=== PATIENT | female | born 1960 | race Caucasian/White ===

== ENCOUNTER 2018-04-03 13:19 | Inpatient (IN) | payer MEDICAID ==
[~2018-04-03] VITALS: Ht 157.5 cm; Wt 51.7 kg
[2018-04-03 13:28] VITALS: BP_SYST 168
[2018-04-03] MEDS ORDERED: NACL 0.9% 1,000 ML IV ONE ×2 (13:33→18:30)
[2018-04-03] MEDS ORDERED: ASPIRIN 81 MG TAB.CHEW PO ONE (13:45)
[2018-04-03 14:14] LABS: BASOPHILS % (AUTO) 0.9 % (0.0-2.0); EOSINOPHILS % (AUTO) 0.3 % (0.0-4.0); HEMATOCRIT 41.9 % (36-48); HEMOGLOBIN 13.1 g/dL (12.0-16.0); LYMPHOCYTES # (AUTO) 1.1 K/uL (1.0-5.5); LYMPHOCYTES % (AUTO) 19.8 % (20.5-51.5); MEAN CORPUSCULAR HEMOGLOBIN 29 pg (27-31); MEAN CORPUSCULAR HGB CONC 31 % (32-36); MEAN CORPUSCULAR VOLUME 93 fL (79.0-98.0); MONOCYTES # (AUTO) 0.6 K/uL (0.0-1.0); MONOCYTES % (AUTO) 10.8 % (1.7-9.3); NEUTROPHILS # (AUTO) 3.8 K/uL (1.8-7.7); NEUTROPHILS % (AUTO) 68.2 % (40.0-70.0); PLATELET COUNT (AUTO) 394 K/uL (130-430); RED BLOOD CELL COUNT(AUTO) 4.51 MIL/uL (4.2-6.2); WHITE BLOOD COUNT (AUTO) 5.5 K/uL (4.8-10.8)
[2018-04-03] MEDS ORDERED: MORPHINE 2 MG/ML INJ. SYRINGE IVP ONE (14:15)
[2018-04-03 14:27] LABS: ANION GAP 10 (5-15); CALCIUM 9.1 mg/dL (8.4-11.0); CHLORIDE 99 mmol/L (98-107); CREATININE 0.65 mg/dL (0.55-1.30); GLUCOSE 117 mg/dL (70-99); POTASSIUM 4.7 mmol/L (3.5-5.1); SODIUM SERUM 136 mmol/L (136-145); UREA NITROGEN, BLOOD 9 mg/dL (8-21)
[2018-04-03 14:29] LABS: INR 1.1 (0.8-1.2); PROTHROMBIN TIME 10.8 SECS (9.5-12.5)
[2018-04-03 14:30] LABS: GFR AFRICAN AMERICAN 120 mL/min (>90)
[2018-04-03 14:43] LABS: ALANINE AMINOTRANSFERASE 14 U/L (12-78); ALBUMIN 2.7 g/dL (3.4-4.8); ASPARTATE AMINOTRANSFERASE 30 U/L (10-37); TOTAL BILIRUBIN 0.4 mg/dL (0.0-1.0)
[2018-04-03] MEDS ORDERED: LIDOCAINE 1% 10 MG/ML, 20 ML MDV INJ ONE (14:45)
[2018-04-03] MEDS ORDERED: PIPERACILLIN/TAZO 3.375 GM in NS 50 ML IV ONE (14:45)
[2018-04-03] MEDS ORDERED: fentaNYL CITRATE/PF 100 MCG/2 ML AMP IVP ONE ×2 (14:45→18:45)
[2018-04-03] MEDS ORDERED: ENOXAPARIN SODIUM 60 MG/0.6 ML SYRINGE SUBCUT ONE (14:45)
[2018-04-03] MEDS ORDERED: CLINDAMYCIN 900 mg/50mL D5W 50 ML IV ONE (14:45)
[2018-04-03] MEDS ORDERED: IOHEXOL 350 mgI/mL, 150 ML INFUS..BTL IV ONE (14:46)
[2018-04-03] MEDS ORDERED: PIPERACILLIN/TAZOBACTAM 3.375 GM/VIAL (ZOSYN) IV ONE (15:10)
[2018-04-03] MEDS ORDERED: LIDOCAINE 1%, 20 ML MDV 20 ML ONE (15:41)
[2018-04-03 17:10] VITALS: BP_SYST 128
[2018-04-03] MEDS ORDERED: ONDANSETRON HCL 4 MG/2 ML VIAL IVP PRN ×2 (17:15→20:45)
[2018-04-03 18:18] LABS: BASOPHILS # (AUTO) 0.1 K/uL (0.0-0.2); EOSINOPHILS % (AUTO) 0.1 % (0.0-4.0); HEMATOCRIT 40.9 % (36-48); HEMOGLOBIN 12.9 g/dL (12.0-16.0); LYMPHOCYTES % (AUTO) 13.4 % (20.5-51.5); MEAN CORPUSCULAR HEMOGLOBIN 29 pg (27-31); MEAN CORPUSCULAR HGB CONC 32 % (32-36); MEAN CORPUSCULAR VOLUME 92 fL (79.0-98.0); MONOCYTES # (AUTO) 0.5 K/uL (0.0-1.0); MONOCYTES % (AUTO) 6.8 % (1.7-9.3); NEUTROPHILS % (AUTO) 78.7 % (40.0-70.0); PLATELET COUNT (AUTO) 398 K/uL (130-430); RED BLOOD CELL COUNT(AUTO) 4.45 MIL/uL (4.2-6.2); WHITE BLOOD COUNT (AUTO) 7.6 K/uL (4.8-10.8)
[2018-04-03] MEDS ORDERED: CEFAZOLIN 2 GM IVPB PREMIX 50 ML IV ONE (18:45)
[2018-04-03] MEDS ORDERED: PROPOFOL 200MG/ 20ML VIAL (DIPRIVAN) IV ONE (18:45)
[2018-04-03] MEDS ORDERED: NEOSTIGMINE METHYLSULFATE 1 MG/ML, 10 ML VIAL IVP ONE (18:45)
[2018-04-03] MEDS ORDERED: MIDAZOLAM HCL 5 MG/5 ML VIAL IVP ONE (18:45)
[2018-04-03] MEDS ORDERED: ROCURONIUM BROMIDE 10 MG/ML (ZEMURON) IV ONE (18:45)
[2018-04-03] MEDS ORDERED: LR 1,000 ML IV.SOLN IV ONE (18:45)
[2018-04-03] MEDS ORDERED: GLYCOPYRROLATE 0.2 MG/ML VIAL IJ ONE (18:45)
[2018-04-03] MEDS ORDERED: SEVOFLURANE 15 MIN GAS INH ONE (18:45)
[2018-04-03 18:47] LABS: INR 1.1 (0.8-1.2); PROTHROMBIN TIME 11.6 SECS (9.5-12.5)
[2018-04-03] MEDS ORDERED: IPRATROPIUM BROM 0.5 MG/2.5 ML VIAL.NEB (ATROVENT) INH SCH (19:00)
[2018-04-03] MEDS ORDERED: ALBUTEROL SULFATE 0.083% 2.5 MG/3 ML VIAL.NEB INH SCH (19:00)
[2018-04-03 20:45] VITALS: BP_SYST 140
[2018-04-03] MEDS ORDERED: fentaNYL CITRATE/PF 100 MCG/2 ML AMP IVP PRN ×2 (20:45)
[2018-04-03] MEDS ORDERED: fentaNYL CITRATE/PF 100 MCG/2 ML AMP ONE (20:52)
[2018-04-03 21:00] VITALS: BP_SYST 116
[2018-04-03 21:11] LABS: BASOPHILS # (AUTO) 0.1 K/uL (0.0-0.2); BASOPHILS % (AUTO) 0.9 % (0.0-2.0); HEMATOCRIT 40.8 % (36-48); HEMOGLOBIN 13.1 g/dL (12.0-16.0); LYMPHOCYTES # (AUTO) 0.9 K/uL (1.0-5.5); LYMPHOCYTES % (AUTO) 7.9 % (20.5-51.5); MEAN CORPUSCULAR HEMOGLOBIN 29 pg (27-31); MEAN CORPUSCULAR HGB CONC 32 % (32-36); MEAN CORPUSCULAR VOLUME 91 fL (79.0-98.0); MONOCYTES # (AUTO) 0.7 K/uL (0.0-1.0); MONOCYTES % (AUTO) 6.2 % (1.7-9.3); NEUTROPHILS # (AUTO) 9.5 K/uL (1.8-7.7); PLATELET COUNT (AUTO) 310 K/uL (130-430); RED BLOOD CELL COUNT(AUTO) 4.46 MIL/uL (4.2-6.2); RED CELL DISTRIBUTION WIDTH 13.2 % (9.0-15.0); WHITE BLOOD COUNT (AUTO) 11.2 K/uL (4.8-10.8)
[2018-04-03] MEDS: NACL 0.9% 1,000 ML IV SCH (21:13)
[2018-04-03] MEDS: MORPHINE 4 MG/ML INJ. SYRINGE IVP PRN (21:43)
[2018-04-03 22:00] VITALS: BP_SYST 114
[2018-04-03] MEDS: MORPHINE 2 MG/ML INJ. SYRINGE IVP PRN (22:50)
[2018-04-03 23:00] VITALS: BP_SYST 110
[2018-04-04] VITALS (24 sets, daily range): BP systolic 107–156
[2018-04-04] MEDS ORDERED: KETOROLAC TROMETHAMINE 30 MG VIAL IVP ONE (01:00)
[2018-04-04] MEDS ORDERED: KETOROLAC TROMETHAMINE 30 MG VIAL ONE (01:16)
[2018-04-04] MEDS: MORPHINE 4 MG/ML INJ. SYRINGE IVP PRN ×3 (02:25→13:54)
[2018-04-04] MEDS: NACL 0.9% 1,000 ML IV SCH (05:07)
[2018-04-04 06:21] LABS: CALCIUM 8.2 mg/dL (8.4-11.0); CREATININE 0.63 mg/dL (0.55-1.30)
[2018-04-04 06:24] LABS: INR 1.1 (0.8-1.2); PROTHROMBIN TIME 11.4 SECS (9.5-12.5)
[2018-04-04] MEDS: MORPHINE 2 MG/ML INJ. SYRINGE IVP PRN (06:26)
[2018-04-04 06:34] LABS: ALBUMIN 1.9 g/dL (3.4-4.8); TOTAL BILIRUBIN 0.4 mg/dL (0.0-1.0)
[2018-04-04 06:57] LABS: BASOPHILS % (AUTO) 0.1 % (0.0-2.0); EOSINOPHILS % (AUTO) 0.1 % (0.0-4.0); HEMATOCRIT 33.2 % (36-48); HEMOGLOBIN 11.4 g/dL (12.0-16.0); LYMPHOCYTES % (AUTO) 13.6 % (20.5-51.5); MEAN CORPUSCULAR HEMOGLOBIN 31 pg (27-31); MEAN CORPUSCULAR HGB CONC 34 % (32-36); MEAN CORPUSCULAR VOLUME 91 fL (79.0-98.0); MONOCYTES # (AUTO) 0.7 K/uL (0.0-1.0); MONOCYTES % (AUTO) 8.5 % (1.7-9.3); NEUTROPHILS % (AUTO) 77.7 % (40.0-70.0); PLATELET COUNT (AUTO) 294 K/uL (130-430); RED BLOOD CELL COUNT(AUTO) 3.64 MIL/uL (4.2-6.2); RED CELL DISTRIBUTION WIDTH 13.2 % (9.0-15.0); WHITE BLOOD COUNT (AUTO) 7.7 K/uL (4.8-10.8)
[2018-04-04] MEDS ORDERED: MORPHINE 4 MG/ML INJ. SYRINGE IVP PRN (07:45)
[2018-04-04] MEDS ORDERED: MORPHINE 4 MG/ML INJ. SYRINGE IVP ONE (07:45)
[2018-04-04] MEDS ORDERED: MORPHINE 4 MG/ML INJ. SYRINGE ONE (07:58)
[2018-04-04] MEDS: MORPHINE SULFATE 15 MG TABLET.ER PO SCH ×2 (09:02→21:09)
[2018-04-04] MEDS: 0.45% NACL 1,000 ML IV SCH (10:47)
[2018-04-04] MEDS: AMPICILLIN SODIUM/SULBACTAM NA 1.5 GM in NS 50 ML IV SCH ×3 (12:53→23:37)
[2018-04-04] MEDS ORDERED: HYDROmorphone 1 MG INJ. 1 MG/ML AMPUL IVP PRN (14:45)
[2018-04-04] MEDS ORDERED: HYDROmorphone 2 MG/ML VIAL IVP PRN (14:45)
[2018-04-04] MEDS: HYDROmorphone 2 MG/ML VIAL IVP PRN ×3 (15:39→23:03)
[2018-04-04] MEDS: ALBUTEROL SULFATE 0.083% 2.5 MG/3 ML VIAL.NEB INH PRN (19:09)
[2018-04-04] MEDS: IPRATROPIUM BROM 0.5 MG/2.5 ML VIAL.NEB (ATROVENT) INH PRN (19:09)
[2018-04-04] MEDS ORDERED: ADENOSINE 6MG/2ML VIAL ONE (23:28)
[2018-04-04] MEDS ORDERED: METOPROLOL TARTRATE 25 MG TABLET PO ONE (23:30)
[2018-04-04] MEDS ORDERED: ADENOSINE 6MG/2ML VIAL IVP ONE (23:30)
[2018-04-04] MEDS ORDERED: METOPROLOL TARTRATE 25 MG TABLET ONE (23:41)
[2018-04-05] VITALS (24 sets, daily range): BP systolic 98–151
[2018-04-05] MEDS: 0.45% NACL 1,000 ML IV SCH ×2 (00:27→14:58)
[2018-04-05] MEDS: HYDROmorphone 2 MG/ML VIAL IVP PRN ×7 (01:12→22:11)
[2018-04-05] MEDS: AMPICILLIN SODIUM/SULBACTAM NA 1.5 GM in NS 50 ML IV SCH ×4 (06:13→23:42)
[2018-04-05 06:30] LABS: BASOPHILS # (AUTO) 0.1 K/uL (0.0-0.2); BASOPHILS % (AUTO) 0.8 % (0.0-2.0); EOSINOPHILS # (AUTO) 0.1 K/uL (0.0-0.4); EOSINOPHILS % (AUTO) 0.7 % (0.0-4.0); HEMATOCRIT 34.2 % (36-48); HEMOGLOBIN 11.4 g/dL (12.0-16.0); LYMPHOCYTES # (AUTO) 1.4 K/uL (1.0-5.5); LYMPHOCYTES % (AUTO) 16.9 % (20.5-51.5); MEAN CORPUSCULAR HEMOGLOBIN 31 pg (27-31); MEAN CORPUSCULAR HGB CONC 33 % (32-36); MEAN CORPUSCULAR VOLUME 92 fL (79.0-98.0); MONOCYTES # (AUTO) 1.1 K/uL (0.0-1.0); MONOCYTES % (AUTO) 13.1 % (1.7-9.3); NEUTROPHILS # (AUTO) 5.4 K/uL (1.8-7.7); NEUTROPHILS % (AUTO) 68.5 % (40.0-70.0); PLATELET COUNT (AUTO) 332 K/uL (130-430); RED BLOOD CELL COUNT(AUTO) 3.73 MIL/uL (4.2-6.2); RED CELL DISTRIBUTION WIDTH 13.4 % (9.0-15.0); WHITE BLOOD COUNT (AUTO) 8.1 K/uL (4.8-10.8)
[2018-04-05 06:50] LABS: CALCIUM 8.7 mg/dL (8.4-11.0); CREATININE 0.58 mg/dL (0.55-1.30); POTASSIUM 3.7 mmol/L (3.5-5.1)
[2018-04-05] MEDS: METOPROLOL TARTRATE 25 MG TABLET PO SCH ×2 (08:40→20:36)
[2018-04-05] MEDS: MORPHINE SULFATE 30 MG TABLET.SA PO SCH ×2 (08:41→20:35)
[2018-04-05] MEDS: ENOXAPARIN SODIUM 40 MG/0.4 ML SYRINGE SUBCUT SCH (08:43)
[2018-04-05] MEDS: HYDROmorphone 1 MG INJ. 1 MG/ML AMPUL IVP PRN ×2 (14:03→17:17)
[2018-04-05 23:58] LABS: BILIRUBIN,URINE NEGATIVE (NEGATIVE); CLARITY/URINE CLEAR (CLEAR); COLOR,URINE YELLOW (YELLOW); GLUCOSE,URINE NEGATIVE (NEGATIVE); KETONES,URINE 1+ (NEGATIVE); LEUKOCYTE ESTERASE ,URINE NEGATIVE (NEGATIVE); NITRITE, URINE NEGATIVE (NEGATIVE); PROTEIN URINE NEGATIVE (NEGATIVE); UROBILINOGEN,URINE 0.2 (0.2-1.0)
[2018-04-05 23:59] LABS: BLOOD, URINE TRACE (NEGATIVE)
[2018-04-06] VITALS (20 sets, daily range): BP systolic 89–129
[2018-04-06] MEDS: HYDROmorphone 2 MG/ML VIAL IVP PRN ×9 (00:24→22:07)
[2018-04-06 04:01] LABS: BACTERIA,URINE FEW /HPF (None Seen); WBC,URINE 0-3 /HPF (0-3)
[2018-04-06] MEDS: 0.45% NACL 1,000 ML IV SCH (04:34)
[2018-04-06] MEDS: AMPICILLIN SODIUM/SULBACTAM NA 1.5 GM in NS 50 ML IV SCH ×3 (05:30→17:02)
[2018-04-06 07:24] LABS: BASOPHILS # (AUTO) 0.1 K/uL (0.0-0.2); BASOPHILS % (AUTO) 1.2 % (0.0-2.0); EOSINOPHILS # (AUTO) 0.1 K/uL (0.0-0.4); EOSINOPHILS % (AUTO) 1.6 % (0.0-4.0); HEMATOCRIT 32.5 % (36-48); LYMPHOCYTES # (AUTO) 1.5 K/uL (1.0-5.5); LYMPHOCYTES % (AUTO) 16.3 % (20.5-51.5); MEAN CORPUSCULAR HEMOGLOBIN 31 pg (27-31); MEAN CORPUSCULAR HGB CONC 34 % (32-36); MEAN CORPUSCULAR VOLUME 91 fL (79.0-98.0); MONOCYTES % (AUTO) 10.8 % (1.7-9.3); NEUTROPHILS # (AUTO) 6.3 K/uL (1.8-7.7); NEUTROPHILS % (AUTO) 70.1 % (40.0-70.0); PLATELET COUNT (AUTO) 322 K/uL (130-430); RED BLOOD CELL COUNT(AUTO) 3.59 MIL/uL (4.2-6.2); RED CELL DISTRIBUTION WIDTH 13.1 % (9.0-15.0)
[2018-04-06] MEDS: MORPHINE SULFATE 30 MG TABLET.SA PO SCH ×2 (08:05→20:45)
[2018-04-06] MEDS: METOPROLOL TARTRATE 25 MG TABLET PO SCH ×2 (08:06→20:45)
[2018-04-06] MEDS: ENOXAPARIN SODIUM 40 MG/0.4 ML SYRINGE SUBCUT SCH (08:08)
[2018-04-06] MEDS ORDERED: MILK OF MAGNESIA 30 ML UDC PO ONE (09:30)
[2018-04-06] MEDS: IPRATROPIUM BROM 0.5 MG/2.5 ML VIAL.NEB (ATROVENT) INH PRN (20:45)
[2018-04-06] MEDS: ALBUTEROL SULFATE 0.083% 2.5 MG/3 ML VIAL.NEB INH PRN (20:45)
[2018-04-07] MEDS: HYDROmorphone 2 MG/ML VIAL IVP PRN ×10 (00:26→23:37)
[2018-04-07] MEDS: AMPICILLIN SODIUM/SULBACTAM NA 1.5 GM in NS 50 ML IV SCH ×5 (00:27→23:36)
[2018-04-07 00:59] VITALS: BP_SYST 135
[2018-04-07] MEDS: ALBUTEROL SULFATE 0.083% 2.5 MG/3 ML VIAL.NEB INH PRN (04:47)
[2018-04-07] MEDS: IPRATROPIUM BROM 0.5 MG/2.5 ML VIAL.NEB (ATROVENT) INH PRN (04:47)
[2018-04-07 06:15] LABS: BASOPHILS # (AUTO) 0.1 K/uL (0.0-0.2); HEMATOCRIT 36.8 % (36-48); MONOCYTES # (AUTO) 1.2 K/uL (0.0-1.0)
[2018-04-07 07:21] LABS: BASOPHILS % (AUTO) 0.5 % (0.0-2.0); EOSINOPHILS # (AUTO) 0.1 K/uL (0.0-0.4); EOSINOPHILS % (AUTO) 0.4 % (0.0-4.0); HEMOGLOBIN 11.9 g/dL (12.0-16.0); LYMPHOCYTES # (AUTO) 1.2 K/uL (1.0-5.5); LYMPHOCYTES % (AUTO) 9.4 % (20.5-51.5); MEAN CORPUSCULAR HEMOGLOBIN 30 pg (27-31); MEAN CORPUSCULAR HGB CONC 32 % (32-36); MEAN CORPUSCULAR VOLUME 92 fL (79.0-98.0); MONOCYTES % (AUTO) 9.2 % (1.7-9.3); NEUTROPHILS # (AUTO) 10.1 K/uL (1.8-7.7); NEUTROPHILS % (AUTO) 80.5 % (40.0-70.0); PLATELET COUNT (AUTO) 466 K/uL (130-430); RED BLOOD CELL COUNT(AUTO) 4.01 MIL/uL (4.2-6.2); RED CELL DISTRIBUTION WIDTH 12.8 % (9.0-15.0); WHITE BLOOD COUNT (AUTO) 12.8 K/uL (4.8-10.8)
[2018-04-07 08:00] VITALS: BP_SYST 110
[2018-04-07] MEDS: MORPHINE SULFATE 30 MG TABLET.SA PO SCH (08:43)
[2018-04-07] MEDS: METOPROLOL TARTRATE 25 MG TABLET PO SCH ×2 (08:44→21:49)
[2018-04-07] MEDS: ENOXAPARIN SODIUM 40 MG/0.4 ML SYRINGE SUBCUT SCH (08:45)
[2018-04-07 12:13] VITALS: BP_SYST 109
[2018-04-07 16:31] VITALS: BP_SYST 126
[2018-04-07 20:07] VITALS: BP_SYST 145
[2018-04-07] MEDS: MORPHINE SULFATE 15 MG TABLET.ER PO SCH (21:48)
[2018-04-08 00:02] VITALS: BP_SYST 100
[2018-04-08 04:38] VITALS: BP_SYST 142
[2018-04-08] MEDS: HYDROmorphone 2 MG/ML VIAL IVP PRN ×9 (04:44→22:08)
[2018-04-08] MEDS: AMPICILLIN SODIUM/SULBACTAM NA 1.5 GM in NS 50 ML IV SCH ×4 (05:44→23:44)
[2018-04-08 08:00] VITALS: BP_SYST 151
[2018-04-08] MEDS: MORPHINE SULFATE 15 MG TABLET.ER PO SCH ×2 (08:48→20:04)
[2018-04-08] MEDS: METOPROLOL TARTRATE 25 MG TABLET PO SCH ×2 (08:49→20:04)
[2018-04-08] MEDS: ENOXAPARIN SODIUM 40 MG/0.4 ML SYRINGE SUBCUT SCH (08:50)
[2018-04-08] MEDS: MILK OF MAGNESIA 30 ML UDC PO PRN (09:21)
[2018-04-08 12:44] VITALS: BP_SYST 106
[2018-04-08 16:46] VITALS: BP_SYST 122
[2018-04-08 20:00] VITALS: BP_SYST 132
[2018-04-08] MEDS ORDERED: HYDROmorphone 2 MG/ML VIAL IVP PRN (20:30)
[2018-04-08] MEDS: MORPHINE SULFATE 30 MG TABLET.SA PO SCH (21:00)
[2018-04-08] MEDS: GABAPENTIN 100 MG CAPSULE PO SCH (21:28)
[2018-04-08] MEDS: NAPROXEN 250 MG TABLET PO SCH (21:29)
[2018-04-08] MEDS ORDERED: MORPHINE SULFATE 15 MG TABLET.ER PO ONE (22:00)
[2018-04-09] VITALS (7 sets, daily range): BP systolic 104–126
[2018-04-09] MEDS: HYDROmorphone 2 MG/ML VIAL IVP PRN ×7 (00:12→22:09)
[2018-04-09] MEDS: AMPICILLIN SODIUM/SULBACTAM NA 1.5 GM in NS 50 ML IV SCH ×4 (05:05→23:25)
[2018-04-09 06:27] LABS: BASOPHILS # (AUTO) 0.1 K/uL (0.0-0.2); BASOPHILS % (AUTO) 1.2 % (0.0-2.0); EOSINOPHILS # (AUTO) 0.1 K/uL (0.0-0.4); EOSINOPHILS % (AUTO) 0.9 % (0.0-4.0); HEMATOCRIT 30.9 % (36-48); HEMOGLOBIN 10.4 g/dL (12.0-16.0); LYMPHOCYTES # (AUTO) 1.3 K/uL (1.0-5.5); LYMPHOCYTES % (AUTO) 15.3 % (20.5-51.5); MEAN CORPUSCULAR HEMOGLOBIN 31 pg (27-31); MEAN CORPUSCULAR HGB CONC 34 % (32-36); MEAN CORPUSCULAR VOLUME 91 fL (79.0-98.0); MONOCYTES # (AUTO) 0.8 K/uL (0.0-1.0); MONOCYTES % (AUTO) 10.2 % (1.7-9.3); NEUTROPHILS % (AUTO) 72.4 % (40.0-70.0); PLATELET COUNT (AUTO) 410 K/uL (130-430); RED BLOOD CELL COUNT(AUTO) 3.38 MIL/uL (4.2-6.2); RED CELL DISTRIBUTION WIDTH 12.9 % (9.0-15.0); WHITE BLOOD COUNT (AUTO) 8.3 K/uL (4.8-10.8)
[2018-04-09 06:55] LABS: ALBUMIN 1.8 g/dL (3.4-4.8); CALCIUM 9.8 mg/dL (8.4-11.0); CREATININE 0.56 mg/dL (0.55-1.30); POTASSIUM 4.1 mmol/L (3.5-5.1); TOTAL BILIRUBIN 0.3 mg/dL (0.0-1.0)
[2018-04-09] MEDS: MORPHINE SULFATE 30 MG TABLET.SA PO SCH ×2 (09:30→20:37)
[2018-04-09] MEDS: NAPROXEN 250 MG TABLET PO SCH ×2 (09:30→20:37)
[2018-04-09] MEDS: GABAPENTIN 100 MG CAPSULE PO SCH ×3 (09:30→20:36)
[2018-04-09] MEDS: METOPROLOL TARTRATE 25 MG TABLET PO SCH ×2 (09:31→20:37)
[2018-04-09] MEDS: ENOXAPARIN SODIUM 40 MG/0.4 ML SYRINGE SUBCUT SCH (09:32)
[2018-04-10 00:10] VITALS: BP_SYST 100
[2018-04-10] MEDS: HYDROmorphone 2 MG/ML VIAL IVP PRN ×6 (02:37→22:37)
[2018-04-10] MEDS: AMPICILLIN SODIUM/SULBACTAM NA 1.5 GM in NS 50 ML IV SCH ×4 (05:06→23:20)
[2018-04-10 08:00] VITALS: BP_SYST 106
[2018-04-10] MEDS: NAPROXEN 250 MG TABLET PO SCH ×2 (08:23→20:16)
[2018-04-10] MEDS: ENOXAPARIN SODIUM 40 MG/0.4 ML SYRINGE SUBCUT SCH (08:24)
[2018-04-10] MEDS: MORPHINE SULFATE 30 MG TABLET.SA PO SCH ×2 (08:25→20:17)
[2018-04-10] MEDS: METOPROLOL TARTRATE 25 MG TABLET PO SCH ×2 (08:25→20:17)
[2018-04-10] MEDS: METHADONE HCL 10 MG TABLET PO SCH ×2 (09:41→20:18)
[2018-04-10] MEDS ORDERED: HYDROmorphone 2 MG/ML VIAL IVP PRN (10:00)
[2018-04-10] MEDS ORDERED: HYDROmorphone 1 MG INJ. 1 MG/ML AMPUL IVP PRN (10:15)
[2018-04-10] MEDS ORDERED: MORPHINE 4 MG/ML INJ. SYRINGE ONE (11:14)
[2018-04-10] MEDS ORDERED: MORPHINE 2 MG/ML INJ. SYRINGE IVP ONE (11:15)
[2018-04-10 12:00] VITALS: BP_SYST 99
[2018-04-10 16:00] VITALS: BP_SYST 100
[2018-04-10 20:00] VITALS: BP_SYST 133
[2018-04-11 00:13] VITALS: BP_SYST 104
[2018-04-11] MEDS: HYDROmorphone 2 MG/ML VIAL IVP PRN ×4 (05:34→18:07)
[2018-04-11] MEDS: AMPICILLIN SODIUM/SULBACTAM NA 1.5 GM in NS 50 ML IV SCH ×4 (07:43→12:00)
[2018-04-11 08:00] VITALS: BP_SYST 117
[2018-04-11] MEDS: NAPROXEN 250 MG TABLET PO SCH ×2 (10:32→20:26)
[2018-04-11] MEDS: METHADONE HCL 10 MG TABLET PO SCH ×2 (10:32→20:25)
[2018-04-11] MEDS: METOPROLOL TARTRATE 25 MG TABLET PO SCH ×2 (10:33→20:26)
[2018-04-11] MEDS: MORPHINE SULFATE 30 MG TABLET.SA PO SCH (10:33)
[2018-04-11] MEDS: ENOXAPARIN SODIUM 40 MG/0.4 ML SYRINGE SUBCUT SCH (10:48)
[2018-04-11 12:00] VITALS: BP_SYST 119
[2018-04-11 16:04] VITALS: BP_SYST 110
[2018-04-11 19:45] VITALS: BP_SYST 125
[2018-04-11] MEDS: MORPHINE SULFATE 15 MG TABLET.ER PO SCH (20:25)
[2018-04-12] MEDS: HYDROmorphone 2 MG/ML VIAL IVP PRN ×4 (00:01→10:46)
[2018-04-12 00:34] VITALS: BP_SYST 116
[2018-04-12] MEDS ORDERED: ADENOSINE 6MG/2ML VIAL IVP ONE (05:00)
[2018-04-12] MEDS ORDERED: ADENOSINE 6MG/2ML VIAL ONE (05:03)
[2018-04-12 08:03] VITALS: BP_SYST 121
[2018-04-12] MEDS: METHADONE HCL 10 MG TABLET PO SCH ×2 (08:57→22:05)
[2018-04-12] MEDS: MORPHINE SULFATE 15 MG TABLET.ER PO SCH ×2 (08:57→22:05)
[2018-04-12] MEDS: METOPROLOL TARTRATE 25 MG TABLET PO SCH ×2 (08:58→22:06)
[2018-04-12] MEDS: NAPROXEN 250 MG TABLET PO SCH ×2 (08:58→22:05)
[2018-04-12] MEDS: ENOXAPARIN SODIUM 40 MG/0.4 ML SYRINGE SUBCUT SCH (09:00)
[2018-04-12 09:18] VITALS: BP_SYST 121
[2018-04-12 12:47] VITALS: BP_SYST 118
[2018-04-12 15:43] VITALS: BP_SYST 108
[2018-04-12 20:00] VITALS: BP_SYST 140
[2018-04-13 00:32] VITALS: BP_SYST 116
[2018-04-13 08:15] VITALS: BP_SYST 141
[2018-04-13] MEDS: METOPROLOL TARTRATE 25 MG TABLET PO SCH ×2 (09:09→20:59)
[2018-04-13] MEDS: MORPHINE SULFATE 15 MG TABLET.ER PO SCH ×2 (09:10→20:58)
[2018-04-13] MEDS: NAPROXEN 250 MG TABLET PO SCH ×2 (09:10→21:00)
[2018-04-13] MEDS: METHADONE HCL 10 MG TABLET PO SCH ×2 (09:10→21:00)
[2018-04-13] MEDS: ENOXAPARIN SODIUM 40 MG/0.4 ML SYRINGE SUBCUT SCH (09:12)
[2018-04-13 12:00] VITALS: BP_SYST 144
[2018-04-13 16:00] VITALS: BP_SYST 139
[2018-04-13] MEDS ORDERED: ANASTROZOLE 1 MG TABLET (ARIMIDEX) PO SCH (18:45)
[2018-04-13 20:00] VITALS: BP_SYST 128
[2018-04-14 00:18] VITALS: BP_SYST 121
[2018-04-14 08:00] VITALS: BP_SYST 121
[2018-04-14 08:05] LABS: ALBUMIN 2.1 g/dL (3.4-4.8); CALCIUM 11.3 mg/dL (8.4-11.0); CREATININE 0.89 mg/dL (0.55-1.30); POTASSIUM 4.8 mmol/L (3.5-5.1); TOTAL BILIRUBIN 0.5 mg/dL (0.0-1.0)
[2018-04-14 08:07] LABS: HEMATOCRIT 34.5 % (36-48); HEMOGLOBIN 11.4 g/dL (12.0-16.0); MEAN CORPUSCULAR HEMOGLOBIN 30 pg (27-31); MEAN CORPUSCULAR HGB CONC 33 % (32-36); MEAN CORPUSCULAR VOLUME 90 fL (79.0-98.0); PLATELET COUNT (AUTO) 559 K/uL (130-430); RED BLOOD CELL COUNT(AUTO) 3.83 MIL/uL (4.2-6.2); RED CELL DISTRIBUTION WIDTH 13.7 % (9.0-15.0); WHITE BLOOD COUNT (AUTO) 11.9 K/uL (4.8-10.8)
[2018-04-14 09:13] LABS: ATYPICAL LYMPHOCYTES % 2 % (0-0); BASOPHILS % (MANUAL) 0 % (0-2); EOSINOPHILS % (MANUAL) 0 % (0-7); LYMPHOCYTES % (MANUAL) 13 % (20-46); MONOCYTES % (MANUAL) 7 % (0-11)
[2018-04-14] MEDS: MORPHINE SULFATE 15 MG TABLET.ER PO SCH ×2 (09:26→21:38)
[2018-04-14] MEDS: NAPROXEN 250 MG TABLET PO SCH ×2 (09:26→21:40)
[2018-04-14] MEDS: METHADONE HCL 10 MG TABLET PO SCH ×2 (09:28→21:37)
[2018-04-14] MEDS: METOPROLOL TARTRATE 25 MG TABLET PO SCH ×2 (09:29→21:36)
[2018-04-14] MEDS: ENOXAPARIN SODIUM 40 MG/0.4 ML SYRINGE SUBCUT SCH (09:31)
[2018-04-14 11:42] VITALS: BP_SYST 128
[2018-04-14] MEDS: ACETAMINOPHEN 325 MG TABLET PO PRN (16:32)
[2018-04-14 16:48] VITALS: BP_SYST 130
[2018-04-14] MEDS: ANASTROZOLE 1 MG TABLET (ARIMIDEX) PO SCH (18:09)
[2018-04-14 19:00] VITALS: BP_SYST 134
[2018-04-14 20:00] VITALS: BP_SYST 134
[2018-04-15] VITALS (7 sets, daily range): BP systolic 96–129
[2018-04-15] MEDS: METOPROLOL TARTRATE 25 MG TABLET PO SCH ×2 (09:00→20:08)
[2018-04-15] MEDS: MORPHINE SULFATE 15 MG TABLET.ER PO SCH ×2 (09:01→20:09)
[2018-04-15] MEDS: METHADONE HCL 10 MG TABLET PO SCH ×2 (09:01→21:30)
[2018-04-15] MEDS: NAPROXEN 250 MG TABLET PO SCH ×2 (09:02→22:34)
[2018-04-15] MEDS: ACETAMINOPHEN 325 MG TABLET PO PRN (09:02)
[2018-04-15] MEDS: ENOXAPARIN SODIUM 40 MG/0.4 ML SYRINGE SUBCUT SCH (09:11)
[2018-04-15] MEDS: ANASTROZOLE 1 MG TABLET (ARIMIDEX) PO SCH (17:43)
[2018-04-16 07:10] LABS: BASOPHILS % (AUTO) 0.2 % (0.0-2.0); EOSINOPHILS # (AUTO) 0.1 K/uL (0.0-0.4); EOSINOPHILS % (AUTO) 1.2 % (0.0-4.0); HEMATOCRIT 37.1 % (36-48); HEMOGLOBIN 12.1 g/dL (12.0-16.0); LYMPHOCYTES # (AUTO) 1.1 K/uL (1.0-5.5); LYMPHOCYTES % (AUTO) 13.4 % (20.5-51.5); MEAN CORPUSCULAR HEMOGLOBIN 30 pg (27-31); MEAN CORPUSCULAR HGB CONC 33 % (32-36); MEAN CORPUSCULAR VOLUME 91 fL (79.0-98.0); MONOCYTES # (AUTO) 0.6 K/uL (0.0-1.0); MONOCYTES % (AUTO) 6.9 % (1.7-9.3); NEUTROPHILS # (AUTO) 6.4 K/uL (1.8-7.7); NEUTROPHILS % (AUTO) 78.3 % (40.0-70.0); PLATELET COUNT (AUTO) 456 K/uL (130-430); RED BLOOD CELL COUNT(AUTO) 4.08 MIL/uL (4.2-6.2); RED CELL DISTRIBUTION WIDTH 13.3 % (9.0-15.0); WHITE BLOOD COUNT (AUTO) 8.2 K/uL (4.8-10.8)
[2018-04-16 07:29] LABS: CALCIUM 11.1 mg/dL (8.4-11.0); CHLORIDE 102 mmol/L (98-107); CREATININE 0.77 mg/dL (0.55-1.30); GLUCOSE 100 mg/dL (70-99); POTASSIUM 4.8 mmol/L (3.5-5.1); SODIUM SERUM 139 mmol/L (136-145); UREA NITROGEN, BLOOD 20 mg/dL (8-21)
[2018-04-16 07:53] LABS: ANION GAP < 1 (5-15); GFR AFRICAN AMERICAN 99 mL/min (>90)
[2018-04-16 08:00] VITALS: BP_SYST 121
[2018-04-16] MEDS: ENOXAPARIN SODIUM 40 MG/0.4 ML SYRINGE SUBCUT SCH (08:45)
[2018-04-16] MEDS: METOPROLOL TARTRATE 25 MG TABLET PO SCH ×2 (08:46→20:11)
[2018-04-16] MEDS: MORPHINE SULFATE 15 MG TABLET.ER PO SCH ×2 (08:54→22:02)
[2018-04-16] MEDS: NAPROXEN 250 MG TABLET PO SCH ×2 (09:49→20:18)
[2018-04-16] MEDS: METHADONE HCL 10 MG TABLET PO SCH ×2 (09:51→20:11)
[2018-04-16 11:36] VITALS: BP_SYST 127
[2018-04-16] MEDS ORDERED: BISACODYL 10 MG/SUPPOSITORY RC PRN (13:00)
[2018-04-16] MEDS ORDERED: BISACODYL 5 MG TABLET.DR (DULCOLAX) PO PRN (13:00)
[2018-04-16] MEDS ORDERED: MILK OF MAGNESIA 30 ML UDC PO ONE (13:00)
[2018-04-16] MEDS ORDERED: BISACODYL 5 MG TABLET.DR (DULCOLAX) PO ONE (13:00)
[2018-04-16] MEDS ORDERED: MILK OF MAGNESIA 30 ML UDC PO PRN (13:00)
[2018-04-16 15:16] VITALS: BP_SYST 117
[2018-04-16] MEDS: ANASTROZOLE 1 MG TABLET (ARIMIDEX) PO SCH (18:32)
[2018-04-16 20:00] VITALS: BP_SYST 113
[2018-04-17 00:23] VITALS: BP_SYST 112
[2018-04-17 08:30] VITALS: BP_SYST 125
[2018-04-17] MEDS: NAPROXEN 250 MG TABLET PO SCH ×2 (10:08→20:17)
[2018-04-17] MEDS: MORPHINE SULFATE 15 MG TABLET.ER PO SCH ×2 (10:08→22:12)
[2018-04-17] MEDS: METOPROLOL TARTRATE 25 MG TABLET PO SCH ×2 (10:09→20:10)
[2018-04-17] MEDS: METHADONE HCL 10 MG TABLET PO SCH ×2 (10:09→20:09)
[2018-04-17] MEDS: ENOXAPARIN SODIUM 40 MG/0.4 ML SYRINGE SUBCUT SCH (10:10)
[2018-04-17] MEDS ORDERED: SODIUM CHLORIDE 0.65% NASAL SPRAY NS PRN (11:45)
[2018-04-17 12:07] VITALS: BP_SYST 125
[2018-04-17 16:08] VITALS: BP_SYST 145
[2018-04-17] MEDS: ANASTROZOLE 1 MG TABLET (ARIMIDEX) PO SCH (18:13)
[2018-04-17 20:00] VITALS: BP_SYST 111
[2018-04-18] VITALS (7 sets, daily range): BP systolic 115–131
[2018-04-18] MEDS: MORPHINE SULFATE 30 MG Immediate Release TABLET PO PRN ×2 (06:26→18:18)
[2018-04-18] MEDS: NAPROXEN 250 MG TABLET PO SCH ×2 (08:51→20:37)
[2018-04-18] MEDS: MORPHINE SULFATE 15 MG TABLET.ER PO SCH ×2 (08:52→22:30)
[2018-04-18] MEDS: METOPROLOL TARTRATE 25 MG TABLET PO SCH ×2 (08:52→20:37)
[2018-04-18] MEDS: METHADONE HCL 10 MG TABLET PO SCH ×2 (08:53→20:38)
[2018-04-18] MEDS: ENOXAPARIN SODIUM 40 MG/0.4 ML SYRINGE SUBCUT SCH (08:54)
[2018-04-18] MEDS: ANASTROZOLE 1 MG TABLET (ARIMIDEX) PO SCH (17:38)
[2018-04-19 00:26] VITALS: BP_SYST 123
[2018-04-19 08:00] VITALS: BP_SYST 142
[2018-04-19] MEDS: METOPROLOL TARTRATE 25 MG TABLET PO SCH ×2 (08:58→21:37)
[2018-04-19] MEDS: NAPROXEN 250 MG TABLET PO SCH ×2 (08:58→21:37)
[2018-04-19] MEDS: METHADONE HCL 10 MG TABLET PO SCH ×2 (08:59→21:38)
[2018-04-19] MEDS: MORPHINE SULFATE 15 MG TABLET.ER PO SCH ×2 (08:59→22:56)
[2018-04-19] MEDS: ENOXAPARIN SODIUM 40 MG/0.4 ML SYRINGE SUBCUT SCH (09:00)
[2018-04-19 12:35] VITALS: BP_SYST 144
[2018-04-19 16:22] VITALS: BP_SYST 127
[2018-04-19] MEDS: ANASTROZOLE 1 MG TABLET (ARIMIDEX) PO SCH (17:15)
[2018-04-19 20:57] VITALS: BP_SYST 140
[2018-04-19 23:44] VITALS: BP_SYST 128
[2018-04-20] MEDS: MILK OF MAGNESIA 30 ML UDC PO PRN (06:35)
[2018-04-20 07:53] VITALS: BP_SYST 135
[2018-04-20] MEDS: ENOXAPARIN SODIUM 40 MG/0.4 ML SYRINGE SUBCUT SCH (08:52)
[2018-04-20] MEDS: MORPHINE SULFATE 15 MG TABLET.ER PO SCH (08:56)
[2018-04-20] MEDS: NAPROXEN 250 MG TABLET PO SCH (08:58)
[2018-04-20] MEDS: METHADONE HCL 10 MG TABLET PO SCH (08:59)
[2018-04-20] MEDS: METOPROLOL TARTRATE 25 MG TABLET PO SCH (09:00)
[2018-04-20 11:54] VITALS: BP_SYST 146
[2018-04-20 12:00] VITALS: BP_SYST 147
== END 2018-04-20 14:15 | disposition hospice, home (50) | DRG 364 ==
LOC: SED 13:19 → SMU 16:17 → SIC 16:59 → STU 17:11 → SIC 20:45 → STU 04-06 18:48
PROVIDERS: ADMIT Internal Medicine Hospice and Palliative Medicine; ATTEND Internal Medicine Hospice and Palliative Medicine
PROC: 30233L1 Transfusion of Nonautologous Fresh Plasma into Peripheral Vein, Percutaneous Approach (ICD-10-PCS; 2018-04-03)
PROC: 30233N1 Transfusion of Nonautologous Red Blood Cells into Peripheral Vein, Percutaneous Approach (ICD-10-PCS; 2018-04-03)
PROC: 30233K1 Transfusion of Nonautologous Frozen Plasma into Peripheral Vein, Percutaneous Approach (ICD-10-PCS; 2018-04-03)
PROC: 0W9B00Z Drainage of Left Pleural Cavity with Drainage Device, Open Approach (ICD-10-PCS; 2018-04-03)
PROC: 0W380ZZ Control Bleeding in Chest Wall, Open Approach (ICD-10-PCS; principal; 2018-04-03 19:00)
PROC: 0HBU3ZX Excision of Left Breast, Percutaneous Approach, Diagnostic (ICD-10-PCS; 2018-04-10)
DX: C50.912 Malignant neoplasm of unspecified site of left female breast (principal); J96.90 Respiratory failure, unspecified, unspecified whether with hypoxia or hypercapnia; E43 Unspecified severe protein-calorie malnutrition; J91.0 Malignant pleural effusion; C78.00 Secondary malignant neoplasm of unspecified lung; C77.3 Secondary and unspecified malignant neoplasm of axilla and upper limb lymph nodes; E88.09 Other disorders of plasma-protein metabolism, not elsewhere classified; G62.9 Polyneuropathy, unspecified; I47.1 Supraventricular tachycardia; N63.10 Unspecified lump in the right breast, unspecified quadrant; I89.0 Lymphedema, not elsewhere classified; G89.29 Other chronic pain; I51.7 Cardiomegaly; L76.22 Postprocedural hemorrhage of skin and subcutaneous tissue following other procedure; Y83.8 Other surgical procedures as the cause of abnormal reaction of the patient, or of later complication, without mention of misadventure at the time of the procedure; Y82.8 Other medical devices associated with adverse incidents; J98.11 Atelectasis; Z85.3 Personal history of malignant neoplasm of breast; Z98.51 Tubal ligation status; Z68.20 Body mass index [BMI] 20.0-20.9, adult; Z82.49 Family history of ischemic heart disease and other diseases of the circulatory system; Z74.01 Bed confinement status; Z79.899 Other long term (current) drug therapy; Y92.89 Other specified places as the place of occurrence of the external cause
CPT/HCPCS: 36415; 36600; 71045; 71250-TC; 71275; 80048; 80053; 81000-TC; 82803-TC; 83605; 83880; 84484; 85007; 85025; 85027; 85379; 85384-TC; 85610-TC; 85730-TC; 86886; 86900; 86901; 86920; 87040-TC; 87070-TC; 87081; 87101; 87116; 88108; 88305; 88307; 88342; 88361; 93005; 93306; 94010; 94640; 94760; 96361; 96365; 96367; 96372; 96375; 97110-GP; 97530-GP; 99291; C1750; J0153; J0295; J0690; J1170; J1650; J1885; J2001; J2250; J2270; J2274; J2543; J2704; J2710; J3010; J3490; J7030; J7060; J7120; J7613; NO CODE; P9021; P9059; Q9967